=== PATIENT | male | born 1975 | race African-American/Black ===

== ENCOUNTER 2017-06-27 11:28 | Emergency (ER) | payer SELFPAY ==
[~2017-06-27] VITALS: Ht 180.3 cm; Wt 114.3 kg
[2017-06-27 13:21] VITALS: BP 126/72
== END 2017-06-27 13:21 | disposition home or self-care (01) ==
LOC: ED 11:28
DX: S93.401A Sprain of unspecified ligament of right ankle, initial encounter (principal); S93.601A Unspecified sprain of right foot, initial encounter; X00.5XXA Jump from burning building or structure in uncontrolled fire, initial encounter; Y93.89 Activity, other specified; Y99.8 Other external cause status; Y92.89 Other specified places as the place of occurrence of the external cause
CPT/HCPCS: Q0092